=== PATIENT | female | born 1960 | race Native Hawaiian/Other Pacific Islander ===

== ENCOUNTER 2016-11-19 15:30 | Outpatient (CLI) | payer BC | END 2016-11-19 19:11 | disposition home or self-care (01) | LOC: MAMMO 15:30 | DX: Z12.31 Encounter for screening mammogram for malignant neoplasm of breast (principal) | CPT/HCPCS: G0202-TC ==

== ENCOUNTER 2017-02-25 08:08 | Outpatient (CLI) | payer BC | END 2017-02-25 19:38 | disposition home or self-care (01) | LOC: CT 08:08 | DX: J32.9 Chronic sinusitis, unspecified (principal) ==

== ENCOUNTER 2020-08-14 15:27 | Outpatient (CLI) | payer BC | END 2020-08-14 20:03 | disposition home or self-care (01) | LOC: MAMMO 15:27 | PROVIDERS: ATTEND Internal Medicine | DX: Z12.31 Encounter for screening mammogram for malignant neoplasm of breast (principal); N95.8 Other specified menopausal and perimenopausal disorders ==

== ENCOUNTER → 2020-11-18 | Outpatient (CLI) | payer BC, OTHER | LOC: INF 17:01 | PROVIDERS: ATTEND Internal Medicine | DX: Z23 Encounter for immunization (principal) | CPT/HCPCS: 96372 ==

== ENCOUNTER 2020-12-12 08:08 | Outpatient (CLI) | payer BC, OTHER | END 2020-12-12 23:59 | disposition home or self-care (01) | LOC: INF 08:08 | PROVIDERS: ATTEND Internal Medicine | DX: Z23 Encounter for immunization (principal) | CPT/HCPCS: 96372 ==

== ENCOUNTER 2022-01-13 12:55 | Outpatient (CLI) | payer BC | END 2022-01-13 19:45 | disposition home or self-care (01) | LOC: MAMMO 12:55 | PROVIDERS: ATTEND Nurse Practitioner Family | DX: Z12.31 Encounter for screening mammogram for malignant neoplasm of breast (principal) ==

== ENCOUNTER 2023-02-17 09:49 | Outpatient (CLI) | payer BC | END 2023-02-17 19:20 | disposition home or self-care (01) | LOC: RESP 09:49 | PROVIDERS: ATTEND Internal Medicine | DX: Z01.818 Encounter for other preprocedural examination (principal) | CPT/HCPCS: 93005 ==